=== PATIENT | female | born 2000 | race Caucasian/White ===

== ENCOUNTER 2025-02-12 21:31 | Emergency (ER) | payer BC ==
[2025-02-12] MEDS ORDERED: predniSONE 20 MG TAB ONE (23:26)
[2025-02-12] MEDS ORDERED: Ketorolac Tromethamine 30 MG (1 mL) VIAL ONE (23:26)
== END 2025-02-12 23:50 | disposition home or self-care (01) ==
LOC: CSHERS 21:31
DX: M54.16 Radiculopathy, lumbar region (principal); I10 Essential (primary) hypertension; K21.9 Gastro-esophageal reflux disease without esophagitis; Z79.899 Other long term (current) drug therapy
CPT/HCPCS: 96372; 99283; J1885; J7512